=== PATIENT | male | born 1990 | race Hispanic/Latino ===

== ENCOUNTER 2018-03-22 18:07 | Inpatient (IN) | payer OTHER ==
[~2018-03-22] VITALS: Ht 182.9 cm; Wt 139.7 kg
[2018-03-22] MEDS ORDERED: ZOFRAN ODT SL STA (18:45)
[2018-03-22] MEDS ORDERED: NORCO 10MG PO STA (18:45)
[2018-03-22] MEDS ORDERED: ATIVAN PO STA (18:45)
--- NOTE | 2018-03-22 18:50 | ER.PDOC ---
GRACE CERVANTES MD 03/22/181849: General Chief Complaint: Abdomen Pain Stated Complaint: ABD PAIN,CRAMPING/ heat exposure TRAVEL OUT OF US: No Time seen by MD: 19:00 Source: patient Exam Limitations: no limitations History of Present Illness Timing/Duration: 4-6 hours Severity: mild Modifying Factors: improves with rest Associated Symptoms: denies symptoms Allergies: Coded Allergies: Penicillins (Verified Allergy, Unknown, Rash, 03/22/18) Home Meds Reported Medications Sertraline Hcl (SERTRALINE HCL) 50 Mg Tablet, 50 MG PO DAILY24, TABLET 03/22/18 Alprazolam (ALPRAZOLAM) 0.25 Mg Tablet, 1 TAB PO BID, #60 TAB 03/22/18 Past Medical History Medical History: no pertinent history Surgical History: no surgical history Social History Smoking: non-smoker Alcohol Use: occassionally Drug Use: none Reviewed Nursing Reviewed: Vital Signs, Abn. Noted Review of Systems All Other Systems: Reviewed and Negative Physical Exam General Appearance: No Apparent Distress EENT: other (dry mucosa) Neck: Non-Tender Respiratory: chest non-tender CVS: reg rate & rhythm Gastrointestinal: Normal Bowel Sounds Back: Normal Inspection Extremities: Normal Range of Motion Neurologic/Psychiatric: gas fitter II-XII NML as Tested Skin: Normal Color Lymphatic: No Adenopathy Progress Progress to dr tapia Departure Time of Disposition: 19:00 Disposition: 01 HOME, SELF-CARE Impression: Primary Impression: Acute kidney injury Additional Impressions: Dehydration Rhabdomyolysis Qualified Codes: M62.82 - Rhabdomyolysis UTI (urinary tract infection) Qualified Codes: N39.0 - Urinary tract infection, site not specified; R31.9 - Hematuria, unspecified Condition: Improved Referrals: PCP,UNKNOWN (PCP) PRIMARY CARE PROVIDER Duration or Time Spent with Pa: 2 hrs MAXIMILIANO TAPIA MD 03/22/182055: General Chief Complaint: Abdomen Pain Stated Complaint: ABD PAIN,CRAMPING/ heat exposure History of Present Illness Allergies: Coded Allergies: Penicillins (Verified Allergy, Unknown, Rash, 03/22/18) Home Meds Reported Medications Sertraline Hcl (SERTRALINE HCL) 50 Mg Tablet, 50 MG PO DAILY24, TABLET 03/22/18 Alprazolam (ALPRAZOLAM) 0.25 Mg Tablet, 1 TAB PO BID, #60 TAB 03/22/18 EKG/XRAY/CT/US CT Comments: Nothing acute on CT abdomen/pelvis Departure Time of Disposition: 20:55 Disposition: 01 HOME, SELF-CARE Impression: Primary Impression: Acute kidney injury Additional Impressions: Dehydration Rhabdomyolysis Qualified Codes: M62.82 - Rhabdomyolysis UTI (urinary tract infection) Qualified Codes: N39.0 - Urinary tract infection, site not specified; R31.9 - Hematuria, unspecified Condition: Improved Referrals: PCP,UNKNOWN (PCP) PRIMARY CARE PROVIDER Comments Admit to Dr. Norton Duration or Time Spent with Pa: 90 mins GRACE CERVANTES MD Mar 22, 2018 18:50 MAXIMILIANO TAPIA MD Mar 22, 2018 20:56
--- NOTE | 2018-03-22 18:52 | NUR ---
URINE COLLECTED AND TAKEN TO LAB
[2018-03-22] MEDS ORDERED: ZOFRAN ODT ONE (18:54)
[2018-03-22] MEDS ORDERED: NORCO 10MG PO ONE (18:55)
[2018-03-22] MEDS ORDERED: ATIVAN ONE (18:55)
[2018-03-22 18:57] LABS: BILIRUBIN,URINE 3 MG/DL (NEGATIVE)
[2018-03-22 19:02] LABS: APPEARANCE,URINE CLOUDY (CLEAR); UA COLOR DARK YELLOW (YELLOW)
[2018-03-22 19:21] LABS: BASOPHIL # 0.1 10^3/uL (0.0-0.1); BASOPHIL % 0.3 % (0.0-0.2); EOSINOPHIL # 0.1 10^3/uL (0.0-0.2); EOSINOPHIL % 0.3 % (0.0-5.0); HEMOGLOBIN 17.2 g/dL (13.9-16.3); LYMPHOCYTES % 10.9 % (24.0-44.0); MEAN CELL HGB 28.3 pg (26-34); MEAN CELL HGB CONCENTRATION 34.7 g/dL (33-37); MEAN CORP VOLUME 81.7 fL (78-100); MEAN PLATELET VOLUME 9.3 fL (7.8-11.0); MONOCYTES # 1.8 10^3/uL (0.3-0.8); MONOCYTES % 9.9 % (5.0-12.0); NEUTROPHIL # 14.6 10^3/uL (1.8-7.7); NEUTROPHILS % 78.1 % (41.0-85.0); RED CELL DISTRIBUTION WIDTH 16.1 % (11.5-14.5); WHITE BLOOD CELL 18.7 10^3/uL (4.5-11.0)
[2018-03-22 19:41] LABS: CALCIUM 9.9 mg/dL (8.4-10.5); CARBON DIOXIDE 19.1 mmol/L (20.0-32)
[2018-03-22] MEDS ORDERED: NS IV STA (19:49)
[2018-03-22 19:50] VITALS: BP 129/65
[2018-03-22] MEDS ORDERED: NS 1000ML 2,000 ML ONE (19:58)
[2018-03-22 20:05] LABS: ABG PCO2 30.7 mmHg (35.0-45.0); ABG PH 7.449 (7.350-7.450); BE(B) -1.7 mmol/L (-2.0-2.0); HCO3act 20.8 mmol/L (22.0-26.0); pO2 71.7 mmHg (75.0-100.0)
[2018-03-22] MEDS ORDERED: ALPR0.254 PO (20:16)
[2018-03-22] MEDS ORDERED: SERT50TA5 PO (20:16)
--- NOTE | 2018-03-22 20:23 | DIREP ---
PROCEDURE:CT ABD/PELVIS WITHOUT CONTRAST TECHNIQUE:Axial cuts were obtained from the dome of the diaphragm to the ischial tuberosities. No intravenous contrast was given. The images were viewed at lung and soft tissue settings. Sagittal and coronal reconstructions are provided. COMPARISON:None. INDICATIONS:left flank pain FINDINGS: LOWER CHEST:The lung bases are clear. LIVER:Normal. BILIARY:Normal. PANCREAS:Normal. SPLEEN:Normal. URINARY TRACT:Normal. ADRENALS:Normal. AORTA/VASCULAR:Normal. RETROPERITONEUM:Normal. BOWEL/MESENTERY:Diverticular present in the sigmoid colon with no evidence of diverticulitis. The appendix is clearly identified and is normal. ABDOMINAL WALL:Normal. PELVIS:Normal. BONES:Normal. OTHER:Normal. CONCLUSION: 1. No acute abnormalities. 2. Diverticulosis. Dictated by: Florin Moreira M.D. on 03/22/2018 at 08:21 PM
--- NOTE | 2018-03-22 20:32 | NUR ---
DR YING EDP ON PHONE WITH DR YING
[2018-03-22] MEDS ORDERED: D5W-1/2 NS/KCL 20MEQ 1,000 ML IV STA (20:57)
[2018-03-22] MEDS ORDERED: NS 1000ML 1,000 ML IV STA ×2 (20:57)
[2018-03-22] MEDS ORDERED: ROCEPHIN 1,000 MG in NS 100ML 100 ML IV STA (20:57)
--- NOTE | 2018-03-22 20:57 | PRM.ACF1 ---
Date and Time Date and Time Time: 20:57 Admission Criteria Forms RENAL FAILURE, ACUTE Clinical Indications for Admission to Inpatient Care ([facility]/check the applicable condition/criteria) Admission is indicated by ALL of the following [A](1)(2)(3)(4)(8)(9)(10)(11)(12) : [x ] I. Acute renal failure as indicated by 1 or more of the following: [ ] 1. 3-fold rise in serum creatinine from baseline [ ] 2. Serum creatinine greater than 4 mg/dL (354 micromoles/L) with acute rise greater than 0.5 mg/dL (44.2 micromoles/L) [ ] 3. Reduction of more than 75% in estimated glomerular filtration rate from baseline eGFR - Adult Calculator [ ] 4. Estimated glomerular filtration rate less than 35 mL/min/1.73m2 ( 0.59 mL/sec/1.73m2) in child up to 18 years of age eGFR - Pediatric Calculator [ ] 5. Anuria indicated by ALL of the following: [ ] a. Adequate volume status [ ] b. Cessation of urine output indicated by 1 or more of the following: [ ] i. Urine output less than 0.3 mL/kg/hour for 24 hours [ ] ii. Anuria (urine output less than 0.1 mL/kg/hour) for 12 hours [ ] II. Renal failure cannot be managed in outpatient or observational care setting as indicated by 1 or more of the following: [ ] 1. Altered mental status that is severe or persistent indicated by 1 or more of the following (1)(2)(3)(4): [ ] a. Confusional state (eg, disorientation, difficulty following commands, deficit in attention) that persists (eg, for more than few hours) despite appropriate treatment (eg, of underlying cause) [ ] b. Lethargy (awake or arousable, but with drowsiness; reduced awareness of self and environment) that persists (eg, for more than few hours) despite appropriate treatment (eg, of underlying cause) [ ] c. Obtundation (ie, arousable with strong stimuli, lessened interest in environment, slowed responses to stimulation) [ ] d. Stupor (may be arousable but patient does not return to normal baseline level of awareness) [ ] e. Coma (not arousable) [ ] 2. Hemodynamic instability as indicated by 1 or more of the following (1)(2)(3)(4)(5)(6)(7): [ ] a. Vital sign abnormality not readily corrected by appropriate treatment within 12 to 24 hours indicated by 1 or more of the following: [ ] i. Tachycardia that persists despite appropriate treatment (eg, volume repletion, treatment of pain, treatment of underlying cause) as indicated by 1 or more of the following (1)(2): [ ] 1) Heart rate greater than 100 beats per minute in adult or child age 6 years or older [ ] 2) Heart rate greater than 115 beats per minute in child 3 to 5 years of age [ ] 3) Heart rate greater than 125 beats per minute in child 1 or 2 years of age [ ] 4) Heart rate greater than 130 beats per minute in infant 6 to 11 months of age [ ] 5) Heart rate greater than 150 beats per minute in infant 3 to 5 months of age [ ] 6) Heart rate greater than 160 beats per minute in 1 or 2 months of age [ ] ii. Hypotension that persists despite appropriate treatment (eg, volume repletion, treatment of underlying cause) as indicated by ALL of the following (1)(2)(3)(4): [ ] 1) Not patient baseline (eg, healthy adult with low SBP) or intentional therapeutic goal (eg, low SBP as treatment goal in heart failure) [ ] 2) Low blood pressure as indicated by 1 or more of the following: [ ] a). New onset of SBP less than 90 mm Hg in adult or child 10 years or older [ ] b). New decrease in SBP greater than 40 mm Hg in adult or child 10 years or older [ ] c). Mean arterial pressure[A] less than 70 mm Hg in adult or child 10 years or older [ ] d). New onset of SBP less than sum of 70 mm Hg plus twice patient' s age in years in child 1 to 9 years of age [ ] e). New onset of SBP less than 70 mm Hg in 1 to 11 months of age [ ] iii. Orthostatic vital sign changes that persist despite appropriate treatment (eg, volume repletion) as indicated by 1 or more of the following (1): [ ] 1) Fall in SBP of 20 mm Hg or more 1 to 3 minutes after patient sits or stands from recumbent position [ ] 2) Fall in DBP of 10 mm Hg or more 1 to 3 minutes after patient sits or stands from recumbent position [ ] b. Vital sign abnormality that is severe indicated by 1 or more of the following: [ ] i. Inadequate perfusion indicated by 1 or more of the following: [ ] 1) Lactic acidosis (greater than 2 mmol/L) [ ] 2) Other metabolic acidosis (arterial pH less than 7.35) not otherwise explained [ ] 3) New abnormal capillary refill (greater than 3 seconds) [ ] 4) Reduced urine output as indicated by 1 or more of the following (1) (2): [ ] a). Urine output less than 0.5 mL/kg/hour for 6 hours in adult [ ] b). Anuria (urine output less than 0.1 mL/kg/hour) for 4 hours in any age group [ ] c). Reduced output in child as indicated by 1 or more of the following (3): [ ] 01. Urine output less than 2 mL/kg/hour for 6 hours in infant younger than 2 years [ ] 02. Urine output less than 1 mL/kg/hour for 6 hours in child younger than 12 years [ ] 03. Urine output less than 0.75 mL/kg/hour for 6 hours in adolescent younger than 18 years [ ] 5) Altered mental status as indicated by 1 or more of the following ( 1)(2)(3)(4): [ ] a). Confusional state (eg, disorientation, difficulty following commands, deficit in attention) [ ] b). Lethargy (awake or arousable, but with drowsiness; reduced awareness of self and environment) [ ] c). Obtundation (ie, arousable with strong stimuli, lessened interest in environment, slowed responses to stimulation) [ ] d). Stupor (may be arousable but patient does not return to normal baseline level of awareness) [ ] e). Coma (not arousable) [ ] 6) Myocardial Ischemia [ ] ii. Mean arterial pressure[A] less than 60 mm Hg [ ] iii. Mean arterial pressure[A] less than 70 mm Hg after 30 minutes of appropriate treatment (eg, fluid resuscitation) [ ] iv. IV inotropic or vasopressor medication required to maintain adequate blood pressure or perfusion [ ] v. Sustained heart rate greater than 120 beats per minute in adult or child 6 years or older[B] [ ] 3. Cardiac arrhythmias of immediate concern as indicated by 1 or more of the following (1)(2): [ ] a. Heart rhythms that are inherently dangerous or unstable as indicated by 1 or more of the following (3)(4)(5): [ ] i. Resuscitated ventricular fibrillation or cardiac arrest [ ] ii. Ventricular escape rhythm [ ] iii. Sustained ventricular tachycardia (30 seconds or more of ventricular rhythm at greater than 100 beats per minute) [ ] iv. Nonsustained ventricular tachycardia and 1 or more of the following: [ ] 1) Suspected cardiac ischemia as cause or consequence of ventricular tachycardia [ ] 2) Acute myocarditis [ ] b. Unstable cardiac conduction defects as indicated by 1 or more of the following (5)(6)(7): [ ] i. Type II second-degree atrioventricular block [ ] ii. Third-degree atrioventricular block [ ] iii. New-onset left bundle branch block with suspected myocardial ischemia [ ] c. Any heart rhythm and 1 or more of the following (3)(4)(8)(9)(10): [ ] i. Continuous long-term ECG monitoring needed (eg, initiation of drug requiring monitoring for more than 24 hours) [ ] ii. Patient has automatic implanted cardioverter-defibrillator that is repeatedly firing, malfunctioning, or in need of immediate adjustment of settings beyond scope of ambulatory or observation care. [ ] d. Heart rhythms of concern due to 1 or more of the following: [ ] i. Hypotension [ ] ii. Respiratory distress Other evidence of respiratory compromise ( eg, pulmonary edema on chest x-ray) [ ] iii. Association with other significant symptoms (eg, Bradycardia with syncope or ongoing dizziness, supraventricular tachycardia with chest pain) (8)(9)(11) [ ] 4. Significant respiratory findings (eg, pulmonary edema) that are severe ( eg, Hypoxemia) or persist despite observation care treatment (eg, Tachypnea) [ ] 5. Clinically significant electrolyte abnormality that requires inpatient care (eg, hyperkalemia with severe ECG findings) [B] [ ] 6. Clinically significant metabolic abnormality (eg, acidosis) that is severe or persists despite outpatient or observation care treatment [ ] 7. Acute treatment of renal failure (eg, dialysis) not feasible or appropriate in observational care setting (eg, no previous vascular access, new to dialysis) [ ] 8. Clinical situation too unstable or uncertain (eg, inadequate urine output , ongoing decline in renal function, etiology unclear) [ ] 9. Necessary support and caregiver ability to adhere to outpatient treatment cannot be arranged in observation care timeframe (eg, within 24 hours) [ ] 10. Other significant finding or clinical condition judged not to be within scope of observation care Extended stay beyond goal length of stay may be needed for (9)(23)(24): [ ] 1. Continuing uremic complications (25) [ ] a. Patient with more severe or persistent renal failure may require longer ICU and acute hospital care. [ ] 2. Care for comorbidities (26)(27)(28)(29) [ ] a. Patient with complex comorbidities, including heart failure, hemorrhage, nielson, diabetes, infection, sepsis, peritonitis, malignancy, hepatorenal syndrome, cirrhosis, malnutrition, vasculitis, or rhabdomyolysis, may require prolonged hospitalization. [ ] 3. acute renal failure [ ] 4. New need for dialysis (eg, not previously arranged and prepared) (21)(30) [ ] a. Patient requiring inpatient dialysis may require longer acute hospital care. The original [employer] [facility] content created by [employer] has been revised. The portions of the content which have been revised are identified through the use of italic text, and [facility] has neither reviewed nor approved the modified material. All other unmodified content is copyright [employer] [facility] [employer]. Please see references footnoted in the original [employer] [facility] edition 2017 MAXIMILIANO LAU MD Mar 22, 2018 20:57
[2018-03-22] MEDS ORDERED: ROCEPHIN ONE (21:00)
--- NOTE | 2018-03-22 21:20 | NUR ---
REPORT GIVEN REPORT GIVEN TO RANDY SAMUEL
[2018-03-22 21:45] VITALS: BP 144/77
[2018-03-22 22:01] LABS: BILIRUBIN,URINE 6 MG/DL (NEGATIVE)
--- NOTE | 2018-03-22 22:06 | NUR ---
NOTIFIED DR YING OF LACTIC 2.7. WE ARE TO REPEAT AT 0200
[2018-03-22] MEDS: D5W-1/2 NS/KCL 20MEQ 1,000 ML IV SCH (22:12)
[2018-03-22 22:15] LABS: APPEARANCE,URINE CLOUDY (CLEAR); UA COLOR YELLOW (YELLOW)
[2018-03-23 00:11] VITALS: BP 158/74
[2018-03-23 04:03] VITALS: BP 107/62
[2018-03-23] MEDS: D5W-1/2 NS/KCL 20MEQ 1,000 ML IV SCH (05:22)
[2018-03-23 08:08] VITALS: BP 108/63
[2018-03-23] MEDS ORDERED: ZOLOFT PO SCH (08:30)
[2018-03-23 08:32] LABS: BASOPHIL % 0.2 % (0.0-0.2); EOSINOPHIL # 0.2 10^3/uL (0.0-0.2); HEMOGLOBIN 14.8 g/dL (13.9-16.3); LYMPHOCYTES # 1.4 10^3/uL (1.0-4.8); LYMPHOCYTES % 14.6 % (24.0-44.0); MEAN CELL HGB 27.9 pg (26-34); MEAN CELL HGB CONCENTRATION 33.2 g/dL (33-37); MEAN PLATELET VOLUME 9.3 fL (7.8-11.0); MONOCYTES # 1.2 10^3/uL (0.3-0.8); NEUTROPHIL # 6.9 10^3/uL (1.8-7.7); NEUTROPHILS % 70.8 % (41.0-85.0); RED CELL DISTRIBUTION WIDTH 16.2 % (11.5-14.5); WHITE BLOOD CELL 9.8 10^3/uL (4.5-11.0)
[2018-03-23 08:50] LABS: CALCIUM 8.5 mg/dL (8.4-10.5); CARBON DIOXIDE 24.6 mmol/L (20.0-32)
[2018-03-23] MEDS ORDERED: XANAX PO SCH (09:00)
--- NOTE | 2018-03-23 09:45 | NUR ---
DISCHARGE PLANNING CM VISITED WITH PATIENT CONCERNING DISCHARGE NEEDS AND CONCERNS. LIVES AT HOME WITH DAD. INDEPENDENT OF ADLS. DOES NOT WORK AT THIS TIME WAS LAID OF WORK. [employer] FAMILY SUPPORT. DENIES NEED FOR DME. DENIES NEED FOR HOME OXYGEN. DENIES NEED FOR HOME HEALTH OR OUTPATIENT SERVICES AT THIS TIME. DISCHARGE GOAL IS DISCHARGE HOME WITH SELF CARE AND FATHER TO ASSIST IF NEEDED. DENIES FURTHER DISCHARGE NEEDS OR CONCERNS AT THIS TIME.
--- NOTE | 2018-03-23 11:54 | PRM.DC ---
Discharge Summary Patient History: Patient reports no known family medical history. General: Alert, Oriented X3, Cooperative, No acute distress HEENT: PERRLA, EOMI Neck: Supple, No JVD Lungs: Clear to auscultation, Normal air movement Heart: Regular rate, Normal S1, Normal S2 Abdomen: Normal bowel sounds, Soft, No tenderness Extremities: No cyanosis Skin: No breakdown Neuro: Normal speech, Strength at 5/5 X4 ext, Cranial nerves 3-12 NL Psych/Mental Status: Mood NL Results(Labs/Rad) Laboratory Tests Test 03/22/18 00:00 03/22/18 19:15 03/22/18 20:02 03/23/18 01:36 Urine Collection Type CATH Urine Color DARK YELLOW Urine Appearance CLOUDY Urine Bilirubin 3 MG/DL Urine Ketones 5 mg/dL Urine Specific [place] 1.030 Urine pH 5 Urine Protein 100 mg/dL Urine Urobilinogen 4.0 Urine Nitrate NEGATIVE Urine Leukocyte Esterase 25 /uL TRACE Urine Ictotest POSITIVE Urine Blood 10 TR Urine RBC NONE SEEN RBC/HPF Urine WBC 0-2 WBC/HPF Urine Squamous Epithelial Cells FEW #/HPF Urine Amorphous Sediment LARGE Urine Bacteria NONE SEEN Urine Hyaline Casts 0-1 Urine Fine Granular Casts 2-5 Urine Glucose NORMAL Urine Opiates, Qualitative NEGATIVE ng/mL Urine Methadone, Qualitative NEGATIVE ng/mL Urine Amphetamine Qualitative NEGATIVE ng/mL Urine Barbiturates, Qualitative NEGATIVE ng/mL Urine Phencyclidine Screen NEGATIVE ng/mL Urine MDMA (Ecstasy), Qualitative NEGATIVE ng/mL Urine Benzodiazepines Screen POSITIVE ng/mL Urine Cocaine Qualitative NEGATIVE ng/mL Ur Tetrahydrocannabinol (THC) Scrn NEGATIVE ng/mL White Blood Count 18.7 10^3/uL Red Blood Count 6.07 10^6/uL Hemoglobin 17.2 g/dL Hematocrit 49.6 % Mean Corpuscular Volume 81.7 fL Mean Corpuscular Hemoglobin 28.3 pg Mean Corpuscular Hemoglobin Concent 34.7 g/dL Red Cell Distribution Width 16.1 % Platelet Count 303 10^3/uL Mean Platelet Volume 9.3 fL Neutrophils (%) (Auto) 78.1 % Lymphocytes (%) (Auto) 10.9 % Monocytes (%) (Auto) 9.9 % Neutrophils # (Auto) 14.6 10^3/uL Lymphocytes # (Auto) 2.0 10^3/uL Monocytes # (Auto) 1.8 10^3/uL Absolute Immature Granulocyte (auto 0.09 10^3 u/L Eosinophils % 0.3 % Basophils % 0.3 % Basophils # 0.1 10^3/uL Eosinophil Count 0.1 10^3/uL Prothrombin Time 18.2 SEC Prothrombin Time INR (Non-Therap) 1.9 Activated Partial Thromboplast Time 26.7 SEC Sodium Level 128 mmol/L Potassium Level 3.8 mmol/L Chloride Level 89.0 mmol/L Carbon Dioxide Level 19.1 mmol/L Anion Gap 23.7 Blood Urea Nitrogen 28 mg/dL Creatinine 3.54 mg/dL Estimated GFR () 25.2 BUN/Creatinine Ratio 7.0 Glucose Level 102 mg/dL Calcium Level 9.9 mg/dL Total Bilirubin 2.4 mg/dL Aspartate Amino Transf (AST/SGOT) 46 U/L Alanine Aminotransferase (ALT/SGPT) 40 U/L Alkaline Phosphatase 83 U/L Total Creatine Kinase 865 U/L Total Protein 10.2 g/dL Albumin 5.0 g/dL Globulin 5.2 Amylase Level 38 U/L Lipase 109 U/L Percent Immature Gran (Cell Imm) 0.50 % Helicobacter pylori Screen POSITIVE Blood Gas Sample Site RT BRACIAL ARTERY RT RADIAL ARTERY Blood Gas pH 7.449 Blood Gas PCO2 30.7 mmHg Blood Gas PO2 71.7 mmHg Blood Gas HCO3 20.8 mmol/L Blood Gas Base Excess -1.7 mmol/L Florencio Test N/A POSITIVE Arterial Blood Oxygen Saturation 93.5 % Deoxyhemoglobin 6.4 % Carboxyhemoglobin 0.3 % Methemoglobin 0.6 % Total Hemoglobin 18.7 % Total Oxygen Concentration 24.3 % Lactic Acid (Blood Gas) 2.7 MMOL/L 1.5 MMOL/L Blood Gas Temperature 37 Oxygen Delivery Method (LAB) RA FiO2 21.0 % Bicarbonate 21.8 mmol/L Test 03/23/18 08:02 White Blood Count 9.8 10^3/uL Red Blood Count 5.31 10^6/uL Hemoglobin 14.8 g/dL Hematocrit 44.6 % Mean Corpuscular Volume 84.0 fL Mean Corpuscular Hemoglobin 27.9 pg Mean Corpuscular Hemoglobin Concent 33.2 g/dL Red Cell Distribution Width 16.2 % Platelet Count 215 10^3/uL Mean Platelet Volume 9.3 fL Neutrophils (%) (Auto) 70.8 % Lymphocytes (%) (Auto) 14.6 % Monocytes (%) (Auto) 12.0 % Neutrophils # (Auto) 6.9 10^3/uL Lymphocytes # (Auto) 1.4 10^3/uL Monocytes # (Auto) 1.2 10^3/uL Absolute Immature Granulocyte (auto 0.04 10^3 u/L Eosinophils % 2.0 % Basophils % 0.2 % Basophils # 0.0 10^3/uL Eosinophil Count 0.2 10^3/uL Sodium Level 135 mmol/L Potassium Level 3.7 mmol/L Chloride Level 99.0 mmol/L Carbon Dioxide Level 24.6 mmol/L Anion Gap 15.1 Blood Urea Nitrogen 19 mg/dL Creatinine 1.30 mg/dL Estimated GFR () 80.1 BUN/Creatinine Ratio 14.0 Glucose Level 108 mg/dL Calcium Level 8.5 mg/dL Total Bilirubin 1.7 mg/dL Aspartate Amino Transf (AST/SGOT) 36 U/L Alanine Aminotransferase (ALT/SGPT) 32 U/L Alkaline Phosphatase 59 U/L Total Creatine Kinase 759 U/L Total Protein 7.8 g/dL Albumin 3.6 g/dL Globulin 4.2 Percent Immature Gran (Cell Imm) 0.40 % Scheduled Alprazolam (Alprazolam), 1 TAB PO BID, (Reported) Sertraline Hcl (Sertraline Hcl), 50 MG PO DAILY24, (Reported) Sepsis Evaluation @ Discharge 03/23/18 08:50 Course Sepsis Screening Results: Posi: POSITIVE Sepsis Qualifier/Stage: NO DEFINITE RISK Vitals & review Data Vital Sign - Last 24 Hours 03/22/18 03/22/18 03/22/18 03/22/18 18:43 18:43 18:49 19:50 Temp 98.3 98.3 98.3 98.3 Pulse 100 100 83 Resp 18 18 16 B/P (MAP) 129/65 (86) Pulse Ox 97 95 O2 Delivery Room Air Room Air 03/22/18 03/22/18 03/23/18 03/23/18 21:39 21:45 00:11 00:27 Temp 98.8 98.1 Pulse 81 77 Resp 18 18 B/P (MAP) 144/77 (99) 158/74 (102) Pulse Ox 97 96 O2 Delivery Room Air Room Air Room Air Room Air 03/23/18 03/23/18 03/23/18 04:03 08:08 08:50 Temp 98.2 98.0 Pulse 77 68 Resp 18 18 B/P (MAP) 107/62 (77) 108/63 (78) Pulse Ox 96 97 O2 Delivery Room Air Room Air Room Air Intake and Output 03/22/18 03/22/18 03/23/18 14:59 22:59 06:59 Intake Total 240 ml 2000 ml Output Total 150 ml 2150 ml Balance 90 ml -150 ml Laboratory Tests Test 03/22/18 00:00 03/22/18 19:15 03/22/18 20:02 03/23/18 01:36 Urine Collection Type CATH Urine Color DARK YELLOW Urine Appearance CLOUDY Urine Bilirubin 3 MG/DL Urine Ketones 5 mg/dL Urine Specific [place] 1.030 Urine pH 5 Urine Protein 100 mg/dL Urine Urobilinogen 4.0 Urine Nitrate NEGATIVE Urine Leukocyte Esterase 25 /uL TRACE Urine Ictotest POSITIVE Urine Blood 10 TR Urine RBC NONE SEEN RBC/HPF Urine WBC 0-2 WBC/HPF Urine Squamous Epithelial Cells FEW #/HPF Urine Amorphous Sediment LARGE Urine Bacteria NONE SEEN Urine Hyaline Casts 0-1 Urine Fine Granular Casts 2-5 Urine Glucose NORMAL Urine Opiates, Qualitative NEGATIVE ng/mL Urine Methadone, Qualitative NEGATIVE ng/mL Urine Amphetamine Qualitative NEGATIVE ng/mL Urine Barbiturates, Qualitative NEGATIVE ng/mL Urine Phencyclidine Screen NEGATIVE ng/mL Urine MDMA (Ecstasy), Qualitative NEGATIVE ng/mL Urine Benzodiazepines Screen POSITIVE ng/mL Urine Cocaine Qualitative NEGATIVE ng/mL Ur Tetrahydrocannabinol (THC) Scrn NEGATIVE ng/mL White Blood Count 18.7 10^3/uL Red Blood Count 6.07 10^6/uL Hemoglobin 17.2 g/dL Hematocrit 49.6 % Mean Corpuscular Volume 81.7 fL Mean Corpuscular Hemoglobin 28.3 pg Mean Corpuscular Hemoglobin Concent 34.7 g/dL Red Cell Distribution Width 16.1 % Platelet Count 303 10^3/uL Mean Platelet Volume 9.3 fL Neutrophils (%) (Auto) 78.1 % Lymphocytes (%) (Auto) 10.9 % Monocytes (%) (Auto) 9.9 % Neutrophils # (Auto) 14.6 10^3/uL Lymphocytes # (Auto) 2.0 10^3/uL Monocytes # (Auto) 1.8 10^3/uL Absolute Immature Granulocyte (auto 0.09 10^3 u/L Eosinophils % 0.3 % Basophils % 0.3 % Basophils # 0.1 10^3/uL Eosinophil Count 0.1 10^3/uL Prothrombin Time 18.2 SEC Prothrombin Time INR (Non-Therap) 1.9 Activated Partial Thromboplast Time 26.7 SEC Sodium Level 128 mmol/L Potassium Level 3.8 mmol/L Chloride Level 89.0 mmol/L Carbon Dioxide Level 19.1 mmol/L Anion Gap 23.7 Blood Urea Nitrogen 28 mg/dL Creatinine 3.54 mg/dL Estimated GFR () 25.2 BUN/Creatinine Ratio 7.0 Glucose Level 102 mg/dL Calcium Level 9.9 mg/dL Total Bilirubin 2.4 mg/dL Aspartate Amino Transf (AST/SGOT) 46 U/L Alanine Aminotransferase (ALT/SGPT) 40 U/L Alkaline Phosphatase 83 U/L Total Creatine Kinase 865 U/L Total Protein 10.2 g/dL Albumin 5.0 g/dL Globulin 5.2 Amylase Level 38 U/L Lipase 109 U/L Percent Immature Gran (Cell Imm) 0.50 % Helicobacter pylori Screen POSITIVE Blood Gas Sample Site RT BRACIAL ARTERY RT RADIAL ARTERY Blood Gas pH 7.449 Blood Gas PCO2 30.7 mmHg Blood Gas PO2 71.7 mmHg Blood Gas HCO3 20.8 mmol/L Blood Gas Base Excess -1.7 mmol/L Fl[place]io Test N/A POSITIVE Arterial Blood Oxygen Saturation 93.5 % Deoxyhemoglobin 6.4 % Carboxyhemoglobin 0.3 % Methemoglobin 0.6 % Total Hemoglobin 18.7 % Total Oxygen Concentration 24.3 % Lactic Acid (Blood Gas) 2.7 MMOL/L 1.5 MMOL/L Blood Gas Temperature 37 Oxygen Delivery Method (LAB) RA FiO2 21.0 % Bicarbonate 21.8 mmol/L Test 03/23/18 08:02 White Blood Count 9.8 10^3/uL Red Blood Count 5.31 10^6/uL Hemoglobin 14.8 g/dL Hematocrit 44.6 % Mean Corpuscular Volume 84.0 fL Mean Corpuscular Hemoglobin 27.9 pg Mean Corpuscular Hemoglobin Concent 33.2 g/dL Red Cell Distribution Width 16.2 % Platelet Count 215 10^3/uL Mean Platelet Volume 9.3 fL Neutrophils (%) (Auto) 70.8 % Lymphocytes (%) (Auto) 14.6 % Monocytes (%) (Auto) 12.0 % Neutrophils # (Auto) 6.9 10^3/uL Lymphocytes # (Auto) 1.4 10^3/uL Monocytes # (Auto) 1.2 10^3/uL Absolute Immature Granulocyte (auto 0.04 10^3 u/L Eosinophils % 2.0 % Basophils % 0.2 % Basophils # 0.0 10^3/uL Eosinophil Count 0.2 10^3/uL Sodium Level 135 mmol/L Potassium Level 3.7 mmol/L Chloride Level 99.0 mmol/L Carbon Dioxide Level 24.6 mmol/L Anion Gap 15.1 Blood Urea Nitrogen 19 mg/dL Creatinine 1.30 mg/dL Estimated GFR () 80.1 BUN/Creatinine Ratio 14.0 Glucose Level 108 mg/dL Calcium Level 8.5 mg/dL Total Bilirubin 1.7 mg/dL Aspartate Amino Transf (AST/SGOT) 36 U/L Alanine Aminotransferase (ALT/SGPT) 32 U/L Alkaline Phosphatase 59 U/L Total Creatine Kinase 759 U/L Total Protein 7.8 g/dL Albumin 3.6 g/dL Globulin 4.2 Percent Immature Gran (Cell Imm) 0.40 % Current Medications Medications (Trade) Dose Ordered Sig/Alec PRN Reason Start Time Stop Time Status Last Admin Alprazolam (Xanax) 0.25 mg BID 03/23/18 09:00 04/22/18 08:59 03/23/18 08:43 Potassium Chloride/Dextrose/ Sod Cl 1,000 ml @ 100 mls/hr Q10H 03/22/18 21:30 04/21/18 21:29 03/23/18 05:22 Sertraline HCl (Zoloft) 50 mg DAILY24 03/23/18 08:30 04/22/18 08:29 03/23/18 08:44 Plan Discharge Date: Mar 23, 2018 Dicharge DX: 1. Acute renal failure with ATN, 2. Dehydration Discharge Disposition: Stable Plan Resume home medications Diet and activity as tolerated Drink plenty of water Follow up with PCP 1-2 weeks Discharge plans discussed with patient, he is his own decision maker and does understand and concur with plans Time spent 25 minutes SHELBY YING MD Mar 23, 2018 11:54
[2018-03-23 12:36] VITALS: BP 108/63
[2018-03-23 12:44] VITALS: BP 130/70
--- NOTE | 2018-03-24 00:03 | HPH ---
ADMIT DATE: 03/22/2018 CHIEF COMPLAINT: Abdominal pain and cramping. HISTORY OF PRESENT ILLNESS: The patient is a 28-year-old man with no significant past medical history other than depression and anxiety, who presented to ER with complaints of abdominal pain, cramping and significant heat exposure. He has been working outside and not drink much water. He has no significant past medical history other than depression, anxiety, on Xanax and Zoloft. He states he has been working outside. He has not drank much water and became dehydrated and had significant abdominal pain. Workup in ER did reveal he had acute renal failure with mildly elevated creatinine kinase. Denies any chest pain. He states he does not smoke. PAST MEDICAL HISTORY: Includes anxiety, depression, alcohol abuse. PAST SURGICAL HISTORY: Denies any surgeries. ALLERGIES: NO KNOWN DRUG ALLERGIES. HOME MEDICATIONS: List takes Zoloft 50 mg daily and Xanax as needed. SOCIAL HISTORY: Positive occasional alcohol use, denies any illicit drug use or tobacco use. FAMILY HISTORY: Negative for early coronary artery disease or diabetes. REVIEW OF SYSTEMS: CARDIAC: Denies chest pain, shortness of breath or dyspnea on exertion. PULMONARY: No cough, sputum production or pleuritic chest pain. GASTROINTESTINAL: Positive for mild nausea, no vomiting, diarrhea or constipation. All else negative in 10 point review of system except as in HPI. PHYSICAL EXAMINATION: VITAL SIGNS: Upon arrival to the ER, height 182.9 cm, weight 139.7 kg, BMI 41.8, temperature 98.3, pulse 100, respirations 18, blood pressure 129/65, O2 saturation 95% on room air. GENERAL: He is alert, in no distress at time of exam. HEENT: Pupils equal, round, reactive to light. Sclerae are anicteric. Oropharynx is clear. Mucous membranes are moist. NECK: Supple, no lymphadenopathy. CARDIOVASCULAR: At time of exam is regular rate and rhythm. LUNGS: Clear bilaterally. ABDOMEN: Soft. Bowel sounds are present, nontender to palpation. EXTREMITIES: No cyanosis, clubbing or significant edema. NEUROLOGIC: Grossly nonfocal. INITIAL LABORATORY DATA: Sodium 128, potassium 3.8, chloride 89, CO2 is 19, BUN 28, creatinine is 3.54, glucose is 102, calcium is 9.9, total bilirubin is 2.4, AST 46, ALT is 40, alkaline phosphatase 83, CK is 865, total protein 10.2, albumin 5.0, lipase 109. ABGs: pH is 7.45, pCO2 is 30.7, pO2 is 71.5. Lactate of 2.5. Repeat lactate 1.5. CBC: White count 18.7, hemoglobin 17.2, platelets 303. Repeat CBC: White count 9.8, hemoglobin 14.8, platelets 215. Repeat chemistry: Sodium 135, potassium 3.7, chloride 99, CO2 24, BUN 19, creatinine 1.3, glucose 108, calcium is 8.5, total bilirubin is 1.7, AST 36, ALT 32, alkaline phosphatase 59, CK 759, total protein 7.8, albumin 3.6. IMAGING STUDIES: Abdominal pelvis CT performed in the Emergency Room shows no acute abnormalities. ASSESSMENT AND PLAN: The patient is a 28-year-old man here with acute renal failure due to acute tubular necrosis, severe dehydration with heat exhaustion. 1. Continue IV fluids. 2. Continue psychiatric medications. 3. After rehydration overnight, he is at baseline, feeling well. No complaints. 4. Routine discharge home. 5. Diet and activity as tolerated. Encourage increased fluid hydration in the next few days. 6. Follow up with PCP in 1-2 weeks. Discharge plans were discussed with the patient. He is his own decision maker. He does understand and concur with plan. Time spent on history and physical and discharge is 45 minutes on 03/23/2018. Sravan Norton MD DR: DIOMEDES/rusty JOB# [id number]
== END 2018-03-23 13:03 | disposition home or self-care (01) | DRG 922 ==
LOC: ER 18:07 → MS 20:36
PROVIDERS: ADMIT Internal Medicine; ATTEND Internal Medicine
DX: T67.5XXA Heat exhaustion, unspecified, initial encounter (principal); N17.0 Acute kidney failure with tubular necrosis; E86.0 Dehydration; F32.9 Major depressive disorder, single episode, unspecified; F41.9 Anxiety disorder, unspecified; X30.XXXA Exposure to excessive natural heat, initial encounter; Y93.89 Activity, other specified; Y92.89 Other specified places as the place of occurrence of the external cause; Y99.8 Other external cause status; Z88.0 Allergy status to penicillin; Z79.899 Other long term (current) drug therapy
CPT/HCPCS: 36415; 36600; 74176; 80053; 80307; 81000; 82150; 82550; 82803; 83605; 83690; 85025; 85610; 85730; 86677; 87086; 96361; 96374; 99285; J0696; J7030; J7050; J7070; Q0162